=== PATIENT | male | born 1950 | race Caucasian/White ===

== ENCOUNTER 2016-09-21 12:38 | Observation (INO) | payer OTHER ==
[~2016-09-21] VITALS: Ht 172.7 cm; Wt 77.2 kg
[~2016-09-21 12:38] MED LIST: MECLIZINE HCL25 MG PO; VALIUM5 MG PO
[2016-09-21 13:32] LABS: HEMATOCRIT 43.5 % (38.0-50.0); MCH 31.3 PG (29.0-34.0); MCHC 34.5 G/DL (30.0-36.0); MCV 90.8 FL (86-99); MEAN PLAT.VOLUME 10.6 uM^3 (9.0-12.4); PLATELET COUNT 183 K/uL (156-360); RBC DIS.WIDTH-CV 12.7 % (11.8-14.6); RBC DIS.WIDTH-SD 42.4 % (39-53); RED BLOOD COUNT 4.79 M/uL (4.00-5.50)
[2016-09-21 13:42] LABS: CHLORIDE 106 mEq/L (99-109); POTASSIUM 4.1 mEq/L (3.7-5.4); SODIUM 138 mEq/L (136-147)
[2016-09-21 13:44] LABS: GLUCOSE 141 mg/dL (70-99)
[2016-09-21 13:45] LABS: ANION GAP 9 MEQ/L (2-14)
[2016-09-21 13:48] LABS: GFR ESTIMATE (CALCULATED) > 59 mL/min/
[2016-09-21 13:49] LABS: UREA NITROGEN (BUN) 17 mg/dL (9-23)
[2016-09-21 13:53] LABS: TROP-I INTERPRETATION NEGATIVE; TROPONIN-I < 0.01 ng/mL (0.0-0.30)
[2016-09-21] MEDS ORDERED: METOPROLOL SUCC50 MG PO (16:06)
[2016-09-21] MEDS ORDERED: ANORO ELLIPTA1 EACH IH (16:06)
[2016-09-21] MEDS ORDERED: TRESIBA FL200 UNIT/1 SC (16:07)
[2016-09-21] MEDS ORDERED: TRULICITY0.75 MG/0. SC (16:07)
[2016-09-21] MEDS ORDERED: CILOSTAZOL100 MG PO (16:07)
[2016-09-21] MEDS ORDERED: LO-DOSE ASPIRIN81 M2 PO (16:07)
[2016-09-21] MEDS ORDERED: PRILOSEC OTC20 MG PO (16:08)
[2016-09-21 19:13] VITALS: BP 145/77
[2016-09-21 20:08] LABS: TROP-I INTERPRETATION NEGATIVE; TROPONIN-I < 0.01 ng/mL (0.0-0.30)
[2016-09-21 21:33] LABS: POINT-OF-CARE METER ID UU13113831
[2016-09-22 00:17] VITALS: BP 120/73
[2016-09-22 01:58] LABS: TROP-I INTERPRETATION NEGATIVE; TROPONIN-I < 0.01 ng/mL (0.0-0.30)
[2016-09-22 04:13] VITALS: BP 127/65
[2016-09-22 05:56] LABS: ANION GAP 8 MEQ/L (2-14); CHLORIDE 107 MEQ/L (99-109); GFR ESTIMATE (CALCULATED) > 59 mL/min/; GLUCOSE 116 mg/dL (70-99); POTASSIUM 4.1 MEQ/L (3.7-5.4); SAMPLE HEMOLYSIS CHECK 0; SAMPLE ICTERIC CHECK 0; SAMPLE LIPEMIA CHECK 0; SODIUM 139 MEQ/L (136-147); UREA NITROGEN (BUN) 14 mg/dL (9-23)
[2016-09-22 08:30] VITALS: BP 124/72
[2016-09-22 11:32] VITALS: BP 138/79
== END 2016-09-22 15:27 | disposition home or self-care (01) ==
LOC: EME 12:38 → EDOF 16:57 → 5WEST 16:57 → EDOF 16:57 → 5WEST 19:09
PROVIDERS: Hospitalist; Internal Medicine
DX: R07.89 Other chest pain (principal); R00.0 Tachycardia, unspecified; R06.02 Shortness of breath; E11.9 Type 2 diabetes mellitus without complications; I73.9 Peripheral vascular disease, unspecified; K21.9 Gastro-esophageal reflux disease without esophagitis; J44.9 Chronic obstructive pulmonary disease, unspecified; I25.10 Atherosclerotic heart disease of native coronary artery without angina pectoris; Z95.5 Presence of coronary angioplasty implant and graft; Z79.4 Long term (current) use of insulin; F17.210 Nicotine dependence, cigarettes, uncomplicated; Z82.49 Family history of ischemic heart disease and other diseases of the circulatory system
CPT/HCPCS: 71020; 71275; 80048; 82948; 84484; 85027; 93005; 99202; 99281; 99285; G0378; J7030

== ENCOUNTER 2017-04-03 07:41 | Emergency (ER) | payer OTHER ==
[~2017-04-03] VITALS: Ht 172.7 cm; Wt 79.5 kg
[~2017-04-03 07:41] MED LIST changes: +ANORO ELLIPTA1 EACH IH; +CILOSTAZOL100 MG PO; +LO-DOSE ASPIRIN81 M2 PO; +METOPROLOL SUCC50 MG PO; +PRILOSEC OTC20 MG PO; +TRESIBA FL200 UNIT/1 SC; +TRULICITY0.75 MG/0. SC
[2017-04-03 08:36] LABS: BASOPHIL (%) 0.8 % (0-1); BASOPHIL COUNT 0.1 K/uL (0-0.1); EOSINOPHIL (%) 3.9 % (0-5); EOSINOPHIL COUNT 0.4 K/uL (0-0.3); HEMATOCRIT 47.9 % (38.0-50.0); HEMOGLOBIN 16.8 G/DL (12.5-16.6); IMMATURE GRANULOCYTE (%) 0.4 % (0.0-0.7); LYMPHOCYTE (%) 15.2 % (15-42); LYMPHOCYTE COUNT 1.5 K/uL (1.0-2.8); MCH 31.7 PG (29.0-34.0); MCHC 35.1 G/DL (30.0-36.0); MCV 90.4 FL (86-99); MONOCYTE COUNT 0.9 K/uL (0-0.8); NEUTROPHIL (%) 70.7 % (45-76); NEUTROPHIL COUNT 7.1 K/uL (1.8-6.4); PLATELET COUNT 204 K/uL (156-360); RBC DIS.WIDTH-CV 12.8 % (11.8-14.6); RBC DIS.WIDTH-SD 42.1 % (39-53); WHITE BLOOD COUNT 10.1 K/uL (4.1-10.2)
[2017-04-03 08:48] LABS: CHLORIDE 103 mEq/L (99-109); POTASSIUM 4.3 mEq/L (3.7-5.4); SODIUM 135 mEq/L (136-147)
[2017-04-03 08:49] LABS: GLUCOSE 141 mg/dL (70-99)
[2017-04-03 08:53] LABS: CREATININE 1.1 mg/dL (0.6-1.3); GFR ESTIMATE (CALCULATED) > 59 mL/min/ (58.99-99999)
[2017-04-03 08:54] LABS: UREA NITROGEN (BUN) 17 mg/dL (9-23)
[2017-04-03 10:55] LABS: APPEARANCE CLEAR ((CLEAR)); BILIRUBIN NEGATIVE; BLOOD NEGATIVE; COLOR YELLOW ((YELLOW)); GLUCOSE (STRIP) NEGATIVE; KETONES NEGATIVE; LEUKOCYTES NEGATIVE; NITRITE NEGATIVE; PROTEIN (STRIP) NEGATIVE
[2017-04-03 11:11] LABS: SPECIFIC GRAVITY 1.062 (1.000-1.030)
[2017-04-03] MEDS ORDERED: CIPRO500 MG PO (11:32)
[2017-04-03] MEDS ORDERED: FLAGYL500 MG PO (11:32)
[2017-04-03 11:49] VITALS: BP 137/83
== END 2017-04-03 12:05 | disposition home or self-care (01) ==
LOC: EME 07:41
PROVIDERS: Emergency Medicine
DX: K52.9 Noninfective gastroenteritis and colitis, unspecified (principal); J44.9 Chronic obstructive pulmonary disease, unspecified; I10 Essential (primary) hypertension; K21.9 Gastro-esophageal reflux disease without esophagitis; E11.9 Type 2 diabetes mellitus without complications; E78.5 Hyperlipidemia, unspecified; I25.2 Old myocardial infarction; Z79.4 Long term (current) use of insulin; Z87.442 Personal history of urinary calculi; Z95.5 Presence of coronary angioplasty implant and graft; F17.200 Nicotine dependence, unspecified, uncomplicated; Z79.82 Long term (current) use of aspirin
CPT/HCPCS: 74177; 80048; 81003; 85025; 99281; 99284; J2270; J2405; J7030

== ENCOUNTER → 2017-04-20 | Outpatient (CLI) | payer MEDICARE, OTHER ==
[~2017-04-20] MED LIST changes: +CIPRO500 MG PO; +FLAGYL500 MG PO
== END | disposition home or self-care (01) ==
LOC: CDC 13:17
DX: Z01.810 Encounter for preprocedural cardiovascular examination (principal); I48.92 Unspecified atrial flutter; R94.31 Abnormal electrocardiogram [ECG] [EKG]
CPT/HCPCS: 93000